=== PATIENT | male | born 1935 ===

== ENCOUNTER 2017-08-27 21:21 | Emergency (ER) | payer MEDICARE ==
[2017-08-27 22:10] VITALS: BP 145/67; PULSE 79; RESP 18; TEMP 97.4; O2SAT 98
[2017-08-27] MEDS ORDERED: Iohexol 240 (50 ml) PO ONE (22:33)
--- NOTE | 2017-08-27 22:51 | ED PDOC ---
HPI: Abdomen Time Seen by Provider: 08/27/17 22:15 Chief Complaint (Nursing): Abdominal Pain Chief Complaint (Provider): Abdominal Pain History Per: Patient Onset/Duration Of Symptoms: Days (14) Current Symptoms Are (Timing): Still Present Location Of Pain/Discomfort: RUQ Quality Of Discomfort: "Pain" Associated Symptoms: Nausea, Vomiting, Loss Of Appetite, Constipation. denies: Fever, Chills, Diarrhea, Back Pain, Chest Pain, Urinary Symptoms Exacerbating Factors: None Alleviating Factors: None Last Bowel Movement: Days Ago (2) Additional History Per: Patient Additional Complaint(s): 77 y/o male complaining of abdominal pain for the last two weeks described as RUQ pain radiating into the back, and entire abdomen. Pain is worse since onset , and he also has episodes that are very severe. He also complains of two episodes of non-bloody, non-bilious vomiting today, constipation for the past to days, also complains of decreased appetite. On 08/13 he was seen by a physician in the [place] and was told that his "organs were fine." Patient has been taking Tramadol for pain. No PMD Past Medical History Vital Signs: Last Vital Signs Temp 97.4 F L 08/27/17 22:05 Pulse 79 08/27/17 22:05 Resp 18 08/27/17 22:05 BP 145/67 08/27/17 22:05 Pulse Ox 98 08/28/17 04:52 - Medical History PMH: CVA, HTN Denies: Chronic Kidney Disease - Surgical History Surgical History: Appendectomy - Family History Family History: States: Unknown Family Hx - Social History Current smoker - smoking cessation education provided: No Ex-Smoker (has not smoked in the last 12 months): No Alcohol: None Drugs: Denies - Home Medications Home Medications: Ambulatory Orders Medication Instructions Recorded Docusate Sodium [Colace] 100 mg PO BID #30 capsule 08/28/17 oxyCODONE/Acetaminophen [Percocet 1 ea PO Q6 PRN #15 tab 08/28/17 5/325 mg Tab] - Allergies Allergies/Adverse Reactions: Allergies Allergy/AdvReac Type Severity Reaction Status Date / Time No Known Allergies Allergy Verified 08/27/17 22:10 Review of Systems ROS Statement: Except As Marked, All Systems Reviewed And Found Negative (and as per HPI) Gastrointestinal: Positive for: Nausea, Vomiting, Abdominal Pain, Constipation Physical Exam - Reviewed Nursing Documentation Reviewed: Yes Vital Signs Reviewed: Yes - Physical Exam Appears: Positive for: No Acute Distress (appears tired) Head Exam: Positive for: ATRAUMATIC, NORMOCEPHALIC Skin: Positive for: Warm, Dry Eye Exam: Positive for: EOMI, PERRL ENT: Positive for: Pharynx Is (normal appearing), Other (tacky mucus membranes) . Negative for: Pharyngeal Erythema, Tonsillar Exudate Neck: Positive for: Painless ROM, Supple Cardiovascular/Chest: Positive for: Regular Rate, Rhythm. Negative for: Murmur Respiratory: Positive for: Normal Breath Sounds. Negative for: Wheezing Gastrointestinal/Abdominal: Positive for: Bowel Sounds (normal and active), Soft , Tenderness (deep RUQ tenderness to palpation). Negative for: Mass, Distended , Guarding, Rebound Back: Negative for: L CVA Tenderness, R CVA Tenderness Extremity: Positive for: Normal ROM. Negative for: Deformity Lymphatic: Negative for: Adenopathy Neurologic/Psych: Positive for: Alert. Negative for: Motor/Sensory Deficits - Laboratory Results Result Diagrams: 08/27/17 23:15 08/27/17 23:15 - ECG O2 Sat by Pulse Oximetry: 98 (RA) Pulse Ox Interpretation: Normal Medical Decision Making Medical Decision Making: Impression: Abdominal Pain. Differential diagnosis includes, but is not limited to: gall bladder disease, pancreatitis, SBO, hepatitis, dyspepsia, kidney stone , pyelonephritis Plan: - Labs - IV Zofran and IVF - CT Abdomen - UA Scribe Attestation: Documented by Bonita Davis, acting as a scribe for Estella Donovan MD. Provider Scribe Attestation: All medical record entries made by the Scribe were at my direction and personally dictated by me. I have reviewed the chart and agree that the record accurately reflects my personal performance of the history, physical exam, medical decision making, and the department course for this patient. I have also personally directed, reviewed, and agree with the discharge instructions and disposition. Disposition - Clinical Impression Clinical Impression: Abdominal pain - Disposition Referrals: [facility] [Outside] Jed Ogden MD [Staff Provider] - Cameron Muñoz MD [Staff Provider] - Disposition: Transfer of Care Disposition Time: 00:30 Condition: STABLE Prescriptions: Docusate Sodium [Colace] 100 mg PO BID #30 capsule oxyCODONE/Acetaminophen [Percocet 5/325 mg Tab] 1 ea PO Q6 PRN #15 tab PRN Reason: Pain, Severe (8-10) Print Language: TURKMEN Patient Signed Over To: Richie Esparza Handoff Comments: Pending ER workup, reassessment and final ER disposition
[2017-08-27] MEDS ORDERED: Iohexol 240 (50 ml) ONE (22:56)
[2017-08-27 23:20] LABS: BASO % 0.8 % (0.0-2.0); EOS % 0.3 % (0.0-4.0); HEMOGLOBIN 9.4 g/dL (12.0-18.0); LYMPH # 1.1 K/uL (1.0-4.3); LYMPH % 25.8 % (20.0-40.0); MEAN CELL VOLUME 100.3 fl (80.0-94.0); MEAN CORPUSCULAR HEMOGLOBIN 33.3 pg (27.0-31.0); MEAN CORPUSCULAR HGB CONC 33.2 g/dL (33.0-37.0); MEAN PLATELET VOLUME 8.5 fl (7.2-11.7); MONO # 0.4 K/uL (0.0-0.8); MONO % 9.9 % (0.0-10.0); NEUT # 2.7 K/uL (1.8-7.0); NEUT % 63.2 % (50.0-75.0); RBC 2.82 Mil/uL (4.40-5.90); RED CELL DISTRIBUTION WIDTH 18.2 % (11.5-14.5); WHITE BLOOD COUNT 4.2 K/uL (4.8-10.8)
[2017-08-27 23:35] LABS: ALB/GLOB RATIO 1.2 (1.0-2.1); ALBUMIN 3.5 g/dL (3.5-5.0); ALT/SGPT 37 U/L (21-72); AST/SGOT 33 U/L (17-59); BLOOD UREA NITROGEN 26 mg/dl (9-20); CALCIUM 9.6 mg/dL (8.4-10.2); GFR AFRICAN-AMERICAN > 60; GFR NON-AFRICAN AMERICAN > 60; LIPASE 92 U/L (23-300)
[2017-08-27 23:41] LABS: INR 1.5 (0.9-1.2); PROTHROMBIN TIME 16.4 Seconds (9.8-13.1)
[2017-08-27 23:42] LABS: PARTIAL THROMBOPLASTIN TIME 27.3 Seconds (25.6-37.1)
--- NOTE | 2017-08-28 00:59 | ED PDOC ---
- Laboratory Results Result Diagrams: 08/27/17 23:15 08/27/17 23:15 - ECG O2 Sat by Pulse Oximetry: 98 (RA) Pulse Ox Interpretation: Normal - Progress Re-evaluation Time: 04:30 Condition: Re-examined, Improved Medical Decision Making Medical Decision Making: Time: 00:00 Patient was signed out to me by Dr. Donovan, pending CT Abdomen. CT Abdomen: FINDINGS: Lung bases: Bibasilar nonspecific infiltrates are present, consistent with atelectasis or pneumonia. Heart: Cardiomegaly. ABDOMEN: Liver: Enlarged fatty liver. Gallbladder and bile ducts: Partially distended gallbladder which is folded on itself near the fundus. Pancreas: There is small hypodense nodules seen on image 52 series 3 measuring 1.6 cm it abuts the pancreas and can represent a small pancreatic pseudocyst versus a small cystic mass. Minimal prominence of pancreatic duct. Spleen: Splenomegaly measuring 14 cm. Left upper quadrant splenules. Adrenals: Unremarkable. No mass. Kidneys and ureters: Bilateral renal cysts. No hydronephrosis. Stomach and bowel: Small hiatal hernia with wall thickening. There is delayed emptying of the contrast versus gastroesophageal reflux versus stasis. Diverticulosis. Appendix: The appendix is not seen. PELVIS: Bladder: Bladder distention 11 cm. Correlation with patient's voiding status is recommended. Reproductive: Enlarged prostate gland measuring 5.6 cm. Correlation with digital rectal examination and serum PSA recommended. ABDOMEN and PELVIS: Intraperitoneal space: Piece presacral fluid.. No free air. No significant fluid collection. Bones/joints: There is diffuse sclerosis of L5, L1, T8 vertebral body and left sacral , right pubic rami suspicious for osseous metastatic disease. No acute fracture. No dislocation. Soft tissues: Bilateral gynecomastia. Vasculature: Aortic valvular calcifications. No abdominal aortic aneurysm. Lymph nodes: Unremarkable. No enlarged lymph nodes. Other findings: Right middle lobe pulmonary calcified granuloma. IMPRESSION: 1. Enlarged prostate gland measuring 5.6 cm. Correlation with digital rectal examination and serum PSA recommended. 2. There is small hypodense nodules seen on image 52 series 3 measuring 1.6 cm it abuts the pancreas and can represent a small pancreatic pseudocyst versus a small cystic mass. 3. Possible osseous metastatic disease. Correlation with internal medicine /oncology history evaluation and further workup or followup as recommended by patient's clinical data. CRITICAL RESULT: The study was personally discussed on the telephone with [Dr. Esparza] on 08/28/2017 3:06 AM EDT. The results were understood and acknowledged. 0400 Discussed the findings with the patient and family. Instructed to follow up with the referrals. [facility] info given. Patient adn family understand the plan and findings. Scribe Attestation: Documented by Delicia Pinto, acting as a scribe for Richie Esparza MD. Provider Scribe Attestation: All medical record entries made by the Scribe were at my direction and personally dictated by me. I have reviewed the chart and agree that the record accurately reflects my personal performance of the history, physical exam, medical decision making, and the department course for this patient. I have also personally directed, reviewed, and agree with the discharge instructions and disposition. Disposition Doctor Will See Patient In The: Office Counseled Patient/Family Regarding: Studies Performed, Diagnosis, Need For Followup - Clinical Impression Clinical Impression: Abdominal pain, Prostate enlargement, Pancreas cyst - POA Present On Arrival: None - Disposition Referrals: [facility] [Outside] Jed Ogden MD [Staff Provider] - Cameron Muñoz MD [Staff Provider] - Disposition: Routine/Home Disposition Time: 04:51 Condition: GOOD Prescriptions: Docusate Sodium [Colace] 100 mg PO BID #30 capsule oxyCODONE/Acetaminophen [Percocet 5/325 mg Tab] 1 ea PO Q6 PRN #15 tab PRN Reason: Pain, Severe (8-10) Forms: [facility] (Uzbek) Print Language: JAMAICAN
[2017-08-28] MEDS ORDERED: Iohexol 300 100 ML IJ ONE (01:49)
--- NOTE | 2017-08-28 03:10 | CT ---
EXAM: CT Abdomen and Pelvis With Intravenous Contrast CLINICAL HISTORY: 82 years old, male; Pain; Abdominal pain; Acute TECHNIQUE: Axial computed tomography images of the abdomen and pelvis with intravenous contrast. All CT scans at this facility use one or more dose reduction techniques, viz.: automated exposure control; ma/kV adjustment per patient size (including targeted exams where dose is matched to indication; i.e. head); or iterative reconstruction technique. 606 images are submitted. Oral contrast was administered. Axial images are submitted in lung and soft tissue windows. Coronal and sagittal reformatted images were created and reviewed. CONTRAST: 95 mL of omnipaque 300 administered intravenously. COMPARISON: No relevant prior studies available. FINDINGS: Lung bases: Bibasilar nonspecific infiltrates are present, consistent with atelectasis or pneumonia. Heart: Cardiomegaly. ABDOMEN: Liver: Enlarged fatty liver. Gallbladder and bile ducts: Partially distended gallbladder which is folded on itself near the fundus. Pancreas: There is small hypodense nodules seen on image 52 series 3 measuring 1.6 cm it abuts the pancreas and can represent a small pancreatic pseudocyst versus a small cystic mass. Minimal prominence of pancreatic duct. Spleen: Splenomegaly measuring 14 cm. Left upper quadrant splenules. Adrenals: Unremarkable. No mass. Kidneys and ureters: Bilateral renal cysts. No hydronephrosis. Stomach and bowel: Small hiatal hernia with wall thickening. There is delayed emptying of the contrast versus gastroesophageal reflux versus stasis. Diverticulosis. Appendix: The appendix is not seen. PELVIS: Bladder: Bladder distention 11 cm. Correlation with patient's voiding status is recommended. Reproductive: Enlarged prostate gland measuring 5.6 cm. Correlation with digital rectal examination and serum PSA recommended. ABDOMEN and PELVIS: Intraperitoneal space: Piece presacral fluid.. No free air. No significant fluid collection. Bones/joints: There is diffuse sclerosis of L5, L1, T8 vertebral body and left sacral , right pubic rami suspicious for osseous metastatic disease. No acute fracture. No dislocation. Soft tissues: Bilateral gynecomastia. Vasculature: Aortic valvular calcifications. No abdominal aortic aneurysm. Lymph nodes: Unremarkable. No enlarged lymph nodes. Other findings: Right middle lobe pulmonary calcified granuloma. IMPRESSION: 1. Enlarged prostate gland measuring 5.6 cm. Correlation with digital rectal examination and serum PSA recommended. 2. There is small hypodense nodules seen on image 52 series 3 measuring 1.6 cm it abuts the pancreas and can represent a small pancreatic pseudocyst versus a small cystic mass. 3. Possible osseous metastatic disease. Correlation with internal medicine /oncology history evaluation and further workup or followup as recommended by patient's clinical data. CRITICAL RESULT: The study was personally discussed on the telephone with [Dr. Esparza] on 08/28/2017 3:06 AM EDT. The results were understood and acknowledged.
[2017-08-28] MEDS ORDERED: Oxycodone/Acetaminophen 5/325 mg Tab PO ONE (05:16)
[2017-08-28] MEDS ORDERED: Oxycodone/Acetaminophen 5/325 mg Tab ONE (05:19)
--- NOTE | 2017-08-28 11:49 | CARD ---
APPROVED REPORT EKG Measurement Heart [id number] <Conclusion> Sinus bradycardia Otherwise normal ECG
== END 2017-08-28 05:28 | disposition home or self-care (01) ==
LOC: MERGE 21:21 → H.ER 21:21
DX: K86.2 Cyst of pancreas (principal); N40.0 Benign prostatic hyperplasia without lower urinary tract symptoms; R10.11 Right upper quadrant pain; I10 Essential (primary) hypertension; Z86.73 Personal history of transient ischemic attack (TIA), and cerebral infarction without residual deficits
CPT/HCPCS: 74177; 80053; 83690; 85025; 85610; 85730; 86850; 86900; 87040; 93005; 96374; 99283; J2405; Q9966; Q9967